=== PATIENT | male | born 2000 | race Caucasian/White ===

== ENCOUNTER 2020-08-19 17:58 | Emergency (ER) | payer OTHER ==
[2020-08-19] MEDS ORDERED: methylPREDNISolone Sodium Succinate 125 MG/2 ML SDV IVPUSH ONE (18:39)
[2020-08-19] MEDS ORDERED: methylPREDNISolone Sodium Succinate 125 MG/2 ML SDV IM ONE (18:49)
--- NOTE | 2020-08-19 19:35 | EDM.PDOC ---
ED HPI GENERAL MEDICAL PROBLEM - General Chief Complaint: Allergic Reaction Stated Complaint: RASH FROM MEDICATION Time Seen by Provider: 08/19/20 18:10 Source of Information: Reports: Patient History Limitations: Reports: No Limitations - History of Present Illness INITIAL COMMENTS - FREE TEXT/NARRATIVE: Pt. presents to ER with complaints of a drug reaction. Pt. states that he is on clindamycin after having a root canal. Pt. states that he has finished 6 days of the course of medication. Today, he noticed the rash to his face, torso and hands. Denies any throat tightness. No nausea/vomiting. No fever or chills. Denies any wheezing or shortness of breath. Onset: Today Onset Date: 08/19/20 Associated Symptoms: Reports: Rash. Denies: Confusion, Chest Pain, Diaphoresis, Fever/Chills - Related Data Allergies Allergy/AdvReac Type Severity Reaction Status Date / Time clindamycin Allergy Rash Verified 08/19/20 18:39 Home Meds: Home Meds . [No Known Home Meds] 08/19/20 [History] Past Medical History - Past Surgical History Musculoskeletal Surgical History: Reports: Other (See Below) Other Musculoskeletal Surgeries/Procedures:: closed reduction L arm Social & Family History - Recreational Drug Use Recreational Drug Use: No ED ROS ALLERGIC REACTION - Review of Systems Review Of Systems: See Below Constitutional: Reports: No Symptoms HEENT: Reports: No Symptoms Respiratory: Reports: No Symptoms Cardiovascular: Reports: No Symptoms Endocrine: Reports: No Symptoms GI/Abdominal: Reports: No Symptoms : Reports: No Symptoms Musculoskeletal: Reports: No Symptoms Skin: Reports: Pruritis, Rash, Erythema ED EXAM GENERAL NO PERIP PULSE - Physical Exam Exam: See Below Exam Limited By: No Limitations General Appearance: Alert, WD/WN, No Apparent Distress Eye Exam: Bilateral Eye: EOMI, PERRL Throat/Mouth: Normal Inspection, Normal Lips, Normal Teeth, Normal Gums, Normal Oropharynx, Normal Voice, No Airway Compromise Neck: Normal Inspection, Supple, Non-Tender, Full Range of Motion Respiratory/Chest: No Respiratory Distress, Lungs Clear, Normal Breath Sounds, No Accessory Muscle Use, Chest Non-Tender Cardiovascular: Normal Peripheral Pulses, Regular Rate, Rhythm, No Edema, No JVD, No Rub GI/Abdominal: Normal Bowel Sounds, Non-Tender, No Organomegaly, No Distention, No Abnormal Bruit (Male) Exam: Deferred Rectal (Males) Exam: Deferred Skin Exam: Warm, Dry, Intact, Erythema, Rash Lymphatic: No Adenopathy Course - Vital Signs Last Recorded V/S: Last Vital Signs Temp 37.2 C 08/19/20 18:10 Pulse 75 08/19/20 18:10 Resp 16 08/19/20 18:10 BP 127/72 08/19/20 18:10 Pulse Ox 98 08/19/20 18:10 - Orders/Labs/Meds Meds: Medications Discontinued Medications Generic Name Dose Route Start Last Admin Trade Name Nicole PRN Reason Stop Dose Admin Methylprednisolone Sodium Succinate 125 mg 08/19/20 18:49 08/19/20 18:57 Methylprednisolone Sodium Succinate 125 Mg/2 Ml Sdv IM 08/19/20 18:50 125 mg ONETIME ONE Administration Departure - Departure Time of Disposition: 19:00 Disposition: Home, Self-Care 01 Clinical Impression: Drug reaction - Discharge Information Instructions: Diphenhydramine capsules or tablets, Drug Allergy, [id number], Prednisone tablets Referrals: PCP,Not In Area [Primary Care Provider] - Forms: ED Department Discharge Additional Instructions: Prednisone 20mg 2 tabs every day for 6 days Benadryl 25mg 2 tabs every 4-6 hours for itching Return to ER if you have any throat tightness or trouble breathing Sepsis Event Note (ED) - Evaluation Sepsis Screening Result: No Definite Risk - Focused Exam Vital Signs: Vital Signs Temp Pulse Resp BP Pulse Ox 08/19/20 18:10 37.2 C 75 16 127/72 98 - Problem List Review Problem List Initiated/Reviewed/Updated: Yes - Assessment/Plan Plan: Prednisone 20mg 2 tabs every day for 6 days Benadryl 25mg 2 tabs every 4-6 hours for itching Return to ER if you have any throat tightness or trouble breathing
== END 2020-08-19 19:00 | disposition home or self-care (01) ==
LOC: VM.ED 17:58
CPT/HCPCS: 96372; 99283; J2930